=== PATIENT | female | born 1965 | race African-American/Black ===

== ENCOUNTER 2021-09-22 07:17 | Emergency (ER) | payer OTHER ==
[2021-09-22 07:32] VITALS: BP 116/77; PULSE 60; TEMP 98.3; BMI 33.7
[2021-09-22] MEDS ORDERED: predniSONE 20 MG TABLET (UD) PO ONE (08:25)
== END 2021-09-22 09:44 | disposition home or self-care (01) ==
LOC: JER 07:17
DX: R09.81 Nasal congestion (principal); R51.9 Headache, unspecified; J02.9 Acute pharyngitis, unspecified; J45.909 Unspecified asthma, uncomplicated
CPT/HCPCS: 0241U-QW; 71046-TC-FY; 99284-25

== ENCOUNTER 2022-12-23 08:17 | Emergency (ER) | payer OTHER ==
[2022-12-23 08:27] VITALS: BP 117/76; PULSE 66; RESP 16; TEMP 98.6; BMI 31.7
== END 2022-12-23 09:10 | disposition home or self-care (01) ==
LOC: JERFT 08:17
DX: R05.9 Cough, unspecified (principal); R09.3 Abnormal sputum; M79.10 Myalgia, unspecified site; R68.83 Chills (without fever); J06.9 Acute upper respiratory infection, unspecified; Z20.822 Contact with and (suspected) exposure to COVID-19
CPT/HCPCS: 0241U-QW; 71046-TC-FY; 99284-25

== ENCOUNTER 2023-04-10 01:07 | Emergency (ER) | payer OTHER ==
[2023-04-10 01:17] VITALS: BP 126/72; PULSE 85; RESP 18; TEMP 98.6; BMI 29.3
[2023-04-10] MEDS ORDERED: DEXAMETHASONE LIQUID 0.5 MG/5 ML PO ONE (01:55)
[2023-04-10] MEDS ORDERED: FAMOTIDINE 20 MG TABLET PO ONE (01:56)
[2023-04-10] MEDS ORDERED: diphenhydrAMINE HCL 25 MG CAPSULE (FP) PO ONE ×2 (01:56→02:10)
[2023-04-10] MEDS ORDERED: DEXAMETHASONE SOD PHOSPHATE 10 MG/1 ML VIAL ONE (02:11)
[2023-04-10] MEDS ORDERED: FAMOTIDINE 20 MG TABLET ONE (02:11)
== END 2023-04-10 05:58 | disposition home or self-care (01) ==
LOC: JER 01:07
DX: T78.40XA Allergy, unspecified, initial encounter (principal)
CPT/HCPCS: 99283-25

== ENCOUNTER 2023-04-17 09:02 | Emergency (ER) | payer OTHER ==
[2023-04-17 09:07] VITALS: BP 146/59; PULSE 62; RESP 18; TEMP 98.7
[2023-04-17] MEDS ORDERED: ACETAMINOPHEN 500 MG TABLET (FP) PO ONE (09:46)
[2023-04-17] MEDS ORDERED: IBUPROFEN 600 MG TABLET (FP) PO ONE ×2 (09:46→09:53)
[2023-04-17] MEDS ORDERED: ACETAMINOPHEN 500 MG TABLET (FP) ONE (09:53)
== END 2023-04-17 11:09 | disposition home or self-care (01) ==
LOC: JERFT 09:02
DX: J06.9 Acute upper respiratory infection, unspecified (principal); Z20.822 Contact with and (suspected) exposure to COVID-19
CPT/HCPCS: 0241U-QW; 99283-25